=== PATIENT | male | born 1960 | race African-American/Black ===

== ENCOUNTER 2019-11-17 14:56 | Emergency (ER) | payer SELFPAY ==
[2019-11-17 15:02] VITALS: BP 144/100
[2019-11-17] MEDS ORDERED: COLCHICINE 0.6 MG TABLET PO ONE (15:06)
[2019-11-17] MEDS ORDERED: INDOMETHACIN 25 MG CAPSULE PO ONE (15:07)
--- NOTE | 2019-11-17 15:12 | ER Document Report ---
HPI - HPI Patient complains to provider of: right foot pain Time Seen by Provider: 11/17/19 15:03 Onset: This morning Onset/Duration: Gradual Quality of pain: Achy Pain Level: 3 Context: Patient presents complaining of right foot pain to the first metatarsal. Patient has a history of gout and suspects the same today. Patient states that he ate a meal yesterday that he feels triggered his symptoms. Patient denies any trauma to the foot. Patient denies any fever. Associated Symptoms: Other - Right foot pain Exacerbated by: Standing, Movement, Walking Relieved by: Denies Similar symptoms previously: Yes Recently seen / treated by doctor: No - ROS ROS below otherwise negative: Yes Systems Reviewed and Negative: Yes All other systems reviewed and negative - CONSTITUTIONAL Constitutional: DENIES: Fever - NEURO Neurology: DENIES: Weakness - MUSCULOSKELETAL Musculoskeletal: REPORTS: Extremity pain, Swelling - DERM Skin Color: Normal Skin Problems: None Past Medical History - General Information source: Patient - Social History Smoking Status: Never Smoker Chew tobacco use (# tins/day): No Frequency of alcohol use: None Drug Abuse: None Lives with: Spouse/Significant other Family History: Reviewed & Not Pertinent Patient has suicidal ideation: No Patient has homicidal ideation: No Musculoskeletal Medical History: Reports Hx Gout Surgical Hx: Negative Vertical Provider Document - CONSTITUTIONAL Agree With Documented VS: Yes Exam Limitations: No Limitations General Appearance: WD/WN, No Apparent Distress - HEENT HEENT: Atraumatic, Normocephalic - NECK Neck: Normal Inspection, Supple - RESPIRATORY Respiratory: Breath Sounds Normal, No Respiratory Distress - CARDIOVASCULAR Cardiovascular: Regular Rate, Regular Rhythm Pulses: Normal: Dorsalis pedis - MUSCULOSKELETAL/EXTREMETIES Musculoskeletal/Extremeties: MAEW, FROM, Tender - Right foot tenderness to the first metatarsal with mild edema, positive calor and faint erythema - NEURO Level of Consciousness: Awake, Alert, Appropriate Motor/Sensory: No Motor Deficit - DERM Integumentary: Warm, Dry, No Rash Course - Re-evaluation Re-evalutation: 11/17/19 15:26 Patient presents with likely gout flareup. Patient states that he has taken colchicine and Indocin in the past with good results. Patient states that his gout has flared up in this joint previously and this is typical of flareups for him. Good return precautions discussed. Patient otherwise stable for discharge. - Vital Signs Vital signs: Temp Pulse Resp BP Pulse Ox 97.8 F 95 16 144/100 H 99 11/17/19 15:01 11/17/19 15:01 11/17/19 15:01 11/17/19 15:01 11/17/19 15:01 Discharge - Discharge Clinical Impression: Gout attack Qualifiers: Gout site: foot Gout etiology: unspecified cause Laterality: right Qualified Code(s): M10.9 - Gout, unspecified Condition: Stable Disposition: HOME, SELF-CARE Instructions: Colchicine (OM), Gout (OM), Gout Diet (OM) Additional Instructions: Return immediately for any new or worsening symptoms Followup with your primary care provider, call tomorrow to make a followup appointment Eat foods that are low in purine to avoid gout flareups Prescriptions: Colchicine [Colchicine 0.6 mg Tablet] 0.6 mg PO ONCE #1 tablet Indomethacin [Indocin 50 Mg Capsule] 50 mg PO TID PRN #15 capsule PRN Reason: Referrals: [facility] [Provider Group] - Follow up as needed
== END 2019-11-17 15:29 | disposition home or self-care (01) ==
LOC: ER 14:56
DX: M79.671 Pain in right foot (principal); M10.9 Gout, unspecified
CPT/HCPCS: 99283; J3490